=== PATIENT | male | born 1930 | race Caucasian/White ===

== ENCOUNTER 2018-08-07 22:32 | Emergency (ER) | END 2018-08-07 23:55 | disposition home or self-care (01) ==

== ENCOUNTER 2019-01-15 12:42 | Inpatient (IN) | payer MEDICARE, OTHER ==
[~2019-01-15] VITALS: Ht 170.2 cm; Wt 54.5 kg
[~2019-01-15 12:42] MED LIST: AMLO-145 PO; ESCI10TA48 PO; PENT400T9 PO; ROSU40TA35 PO
--- NOTE | 2019-01-15 13:03 | EN ---
Date/Time of Note Date/Time of Note DATE: 01/15/19 TIME: 13:02 ER Progress Note MSE in ED 3. 88-year-old male with weight loss and weakness. No SIRS criteria. Refer to ED 1. WM MELARA MD January 15, 2019 13:03
[2019-01-15] MEDS ORDERED: LISI-313 PO (14:21)
[2019-01-15] MEDS ORDERED: ISOS120T15 PO (14:22)
[2019-01-15] MEDS ORDERED: PENT400T9 PO (14:23)
[2019-01-15] MEDS ORDERED: TAMS-14 PO (14:23)
[2019-01-15] MEDS ORDERED: FINA5TAB4 PO (14:24)
[2019-01-15] MEDS ORDERED: FLUV100C2 PO (14:24)
[2019-01-15] MEDS ORDERED: ASPI-817 PO (14:25)
[2019-01-15] MEDS ORDERED: RANI150T5 PO (14:25)
[2019-01-15] MEDS ORDERED: DONE5TAB7 PO (14:25)
[2019-01-15] MEDS ORDERED: CLON1TAB13 PO (14:26)
--- NOTE | 2019-01-15 16:32 | ERD ---
ER Documentation Chief Complaint Chief Complaint SENT BY DR HOWARD D/T UNEXPLAINED WEAKNESS & FAILURE TO THRIVE HPI 88-year-old male with a history of advanced dementia sent by PCP Dr. Marybeth Howard for generalized weakness with inability to walk today as well as decreased appetite for the past 2 weeks. Family states he is not eating well. He urinates frequently. No fevers, chills, recent illnesses, nausea, vomiting, or complaints of any pain. Otherwise history is limited as the patient is not answering questions asked to him due to his dementia most likely. ROS All systems reviewed and are negative except as per history of present illness. Medications Home Meds Reported Medications Clonazepam* (Clonazepam*) 1 Mg Tablet, 0.5 MG PO QHS PRN for ANXIETY, TAB 01/15/19 Ranitidine Hcl* (Ranitidine Hcl*) 150 Mg Tablet, 150 MG PO HS, #30 TAB 01/15/19 Aspirin* (Aspirin* EC) 81 Mg Tablet.dr, 81 MG PO DAILY, TAB 01/15/19 Donepezil* (Donepezil*) 5 Mg Tablet, 5 MG PO DAILY, #30 TAB 01/15/19 Finasteride* (Finasteride*) 5 Mg Tablet, 5 MG PO DAILY, TAB 01/15/19 Fluvoxamine Maleate (FLUVOXAMINE MALEATE) 100 Mg Cap.er.24h, 100 MG PO DAILY, #30 CAP 01/15/19 Tamsulosin Hcl* (Flomax*) 0.4 Mg Cap.er.24h, 0.4 MG PO DAILY, CAP 01/15/19 Pentoxifylline* (Pentoxifylline*) 400 Mg Tablet.sa, 400 MG PO TID, TAB 01/15/19 Isosorbide Mononitrate* (Isosorbide Mononitrate*) 120 Mg Tab.sr.24h, 120 MG PO BID, TAB.SA 01/15/19 Lisinopril* (Lisinopril*) 5 Mg Tablet, 5 MG PO DAILY, #30 TAB 01/15/19 Discontinued Reported Medications Pentoxifylline* (Pentoxifylline*) 400 Mg Tablet.sa, 400 MG PO TID, TAB 01/28/15 Escitalopram Oxalate* (Escitalopram Oxalate*) 10 Mg Tablet, 10 MG PO DAILY, TAB 01/28/15 Amlodipine Besylate* (Amlodipine Besylate*) 5 Mg Tablet, 5 MG PO DAILY 07/16/13 Rosuvastatin Calcium* (Crestor*) 40 Mg Tablet, 40 MG PO DAILY 07/16/13 Allergies Allergies: Coded Allergies: Penicillins (Unverified Allergy, Unknown, 01/15/19) PMhx/Soc History of Surgery: Yes (INGUINAL HERNIA, CATARACT, stent, valve replacement ) Anesthesia Reaction: No Hx Neurological Disorder: Yes (dementia ) Hx Respiratory Disorders: Yes (emphysema) Hx Cardiac Disorders: Yes (HTN,PAD,AORTIC STENOSIS, CAD) Hx Psychiatric Problems: Yes (depression ) Hx Miscellaneous Medical Probl: No Hx Alcohol Use: No Hx Substance Use: No Hx Tobacco Use: No Smoking Status: Never smoker FmHx Unable to obtain Physical Exam Vitals Vital Signs Date Temp Pulse Resp B/P (MAP) Pulse Ox O2 O2 Flow FiO2 Time Delivery Rate 01/15/19 81 16 118/96 96 Room Air 17:06 (103) 01/15/19 98.6 135 16 86/51 (63) 94 12:57 Physical Exam Const: No acute distress, cachectic Head: Atraumatic Eyes: Normal Conjunctiva ENT: dry mucous membranes.Normal External Ears, Nose and Mouth. Neck: Full range of motion. No meningismus. Resp: Clear to auscultation bilaterally Cardio: Tachycardic with regular rhythm, no murmurs Abd: Soft, non tender, non distended. Normal bowel sounds Skin: No petechiae or rashes Back: No midline or flank tenderness Ext: No cyanosis, or edema Neur: Awake and alert, no facial asymmetry, moving all extremities. Strength and sensations grossly intact in all 4 extremities. Following commands. Psych: Flat affect Result Diagram: 01/15/19 1505 01/15/19 1505 Results 24 hrs Laboratory Tests Test 01/15/19 13:33 01/15/19 15:05 01/15/19 15:16 Urine Color YELLOW Urine Clarity SLIGHTLY CLOUDY Urine pH 5.0 Urine Specific Archer 1.021 Urine Ketones NEGATIVE mg/dL Urine Nitrite NEGATIVE mg/dL Urine Bilirubin NEGATIVE mg/dL Urine Urobilinogen NEGATIVE mg/dL Urine Leukocyte Esterase NEGATIVE Aminah/ul Urine Microscopic RBC 0 /HPF Urine Microscopic WBC 2 /HPF Urine Mucus MODERATE /HPF Urine Hemoglobin NEGATIVE mg/dL Urine Glucose NEGATIVE mg/dL Urine Total Protein 2+ mg/dl White Blood Count 7.6 10^3/ul Red Blood Count 4.14 10^6/ul Hemoglobin 13.0 g/dl Hematocrit 40.2 % Mean Corpuscular Volume 97.1 fl Mean Corpuscular Hemoglobin 31.4 pg Mean Corpuscular 32.3 g/dl Hemoglobin Concent Red Cell Distribution Width 12.9 % Platelet Count 138 10^3/UL Mean Platelet Volume 11.1 fl Immature Granulocytes % 0.300 % Neutrophils % 69.1 % Lymphocytes % 17.5 % Monocytes % 11.4 % Eosinophils % 1.3 % Basophils % 0.4 % Nucleated Red Blood Cells % 0.0 /100WBC Immature Granulocytes # 0.020 10^3/ul Neutrophils # 5.2 10^3/ul Lymphocytes # 1.3 10^3/ul Monocytes # 0.9 10^3/ul Eosinophils # 0.1 10^3/ul Basophils # 0.0 10^3/ul Nucleated Red Blood Cells # 0.0 10^3/ul Sodium Level 142 mmol/L Potassium Level 4.0 mmol/L Chloride Level 100 mmol/L Carbon Dioxide Level 38 mmol/L Anion Gap 4 Blood Urea Nitrogen 23 mg/dl Creatinine 1.13 mg/dl Est Glomerular Filtrat mL/min Rate mL/min Glucose Level 112 mg/dl Calcium Level 9.2 mg/dl Total Bilirubin 0.6 mg/dl Direct Bilirubin 0.00 mg/dl Indirect Bilirubin 0.6 mg/dl Aspartate Amino 22 IU/L Transf (AST/SGOT) Alanine 22 IU/L Aminotransferase (ALT/SGPT) Alkaline Phosphatase 70 IU/L Troponin I 0.039 ng/ml Total Protein 7.2 g/dl Albumin 3.7 g/dl Globulin 3.50 g/dl Albumin/Globulin Ratio 1.05 Bedside Glucose 91 mg/dL Current Medications Medications Dose Sig/Hilary Start Time Status Last (Trade) Ordered Route PRN Stop Time Admin Dose Reason Admin Potassium 1,000 ml @ [id number] 01/15/19 Chloride/Dext 80 mls/hr ONCE IV 17:16 amy/ Sod Cl 01/16/19 05:45 Ondansetron 4 mg BRIDGE ORDER 01/15/19 HCl (Zofran PRN IV 18:00 Inj) NAUSEA/VOMITI 01/16/19 17:59 NG 650 mg ER BRIDGE 01/15/19 Acetaminophen PRN PO 18:00 (Tylenol .MILD PAIN 01/16/19 17:59 Tab) 1-3 OR TEMP Procedures/MDM EMERGENT LABS AND DIAGNOSTIC STUDIES: Lab Results above were reviewed and interpreted by me. CBC: no anemia or evidence of infection. Mild thrombocytopenia, unclear etiolog y CMP: Elevated BUN, likely secondary to dehydration. No evidence of clinically significant electrolyte abnormality, acidosis, renal failure, hypoglycemia, liver disease, or biliary obstruction UA: no evidence of infection 12-lead EKG was interpreted by Ron Pozo MD: Normal Sinus Rhythm with ventricular rate of 80 beats per minute LVH with QRS widening and repolarization abnormality No acute ST or T wave changes suggestive of acute ischemia or STEMI. Radiology Results as interpreted by Radiology below were reviewed by Jamey Pozo MD: CT head: IMPRESSION: 1. No acute intracranial hemorrhage, transcortical infarction or mass effect. Please note MRI is more sensitive for detection of acute ischemia and can be obtained as clinically warranted. 2. Moderate intracranial atherosclerosis and chronic small vessel ischemic changes. 3. Moderate generalized cerebral and mild cerebellar volume loss. CXR: No acute abnormalities Initial Nursing notes reviewed. Previous Medical Records requested via the Electronic Health Record. EMERGENCY DEPARTMENT COURSE / MEDICAL DECISION MAKING: Patient presented tachycardic and hypotensive, likely secondary to dehydration given the history family gave me. He was treated with IV fluids with significa nt improvement and stabilization of his vitals. On exam there are no signs of infection. I do not suspect acute stroke. I suspect the patient is having worsening of his dementia and these are likely symptoms of that. Work-up does not show evidence of infection. CT head showed no acute abnormalities. However given the patient's failure to eat and hydrate himself and family's difficulty taking care of him I feel the patient requires admission for hydration and assessment of nutrition. Critical Care Time: 35 minutes Treatments/Evaluations: Close monitoring and treatment of unstable vital signs, cardiorespiratory, and neurologic status, while maintaining tight balance of fluid, respiratory, and cardiac interventions. This time includes discussing the case with the patient and the patients family. This time does not include all procedures stated elsewhere in this record. This time also includes reviewing old records, labs and radiological studies. This time includes examining and re- examining the patient. Additionally, this time also includes arranging care with admitting and consulting physicians. Accepting Care Team: Current data and ongoing care discussed. Time: Time of admission Primary Provider: Dr. May. Dr. Howard requested admission to Dr. Nguyen's service Departure Diagnosis: Primary Impression: Generalized weakness Additional Impressions: Failure to thrive Failure to thrive age range: in adult Qualified Codes: R62.7 - Adult failure to thrive Transient hypotension Condition: Fair JOSELO POZO MD January 15, 2019 16:28
[2019-01-15] MEDS ORDERED: D5W-0.45 NACL + KCL 40 MEQ 1,000 ML IV ONE (17:16)
[2019-01-15] MEDS ORDERED: ACETAMINOPHEN 325 MG TAB PO PRN ×2 (18:00→22:00)
[2019-01-15] MEDS ORDERED: ONDANSETRON 4 MG INJ IV PRN ×2 (18:00→22:00)
[2019-01-15 20:36] VITALS: BP 143/63; PULSE 71; RESP 18
[2019-01-15 20:57] VITALS: Ht 170.2 cm; Wt 54.5 kg
[2019-01-15] MEDS ORDERED: clonAZEPAM 0.5 MG TAB PO PRN (22:00)
[2019-01-15] MEDS: DEXTROSE 5%-0.45% NACL 1,000 ML IV SCH (22:13)
[2019-01-15] MEDS: FAMOTIDINE 20 MG INJ IV SCH (22:13)
[2019-01-16 01:54] VITALS: BP 161/76; PULSE 75; RESP 18
[2019-01-16 03:08] VITALS: BP 154/63
[2019-01-16 07:21] VITALS: BP 161/74; PULSE 98; RESP 16
[2019-01-16] MEDS ORDERED: FLUVOXAMINE 50 MG TAB PO SCH (09:00)
[2019-01-16] MEDS: LISINOPRIL 5 MG TAB PO SCH (10:15)
[2019-01-16] MEDS: ASPIRIN (EC) 81 MG TAB PO SCH (10:15)
[2019-01-16] MEDS: DONEPEZIL 5 MG TAB PO SCH (10:15)
[2019-01-16] MEDS: ISOSORBIDE MONONITRATE(SR)60 MG TAB PO SCH (10:16)
[2019-01-16] MEDS: PENTOXIFYLLINE (SR) 400 MG TAB PO SCH ×3 (10:16→20:16)
[2019-01-16] MEDS: FAMOTIDINE 20 MG INJ IV SCH (10:17)
[2019-01-16] MEDS: FLUVOXAMINE MALEATE 25 MG TABLET PO SCH (10:18)
[2019-01-16] MEDS: FINASTERIDE 5 MG TAB PO SCH (10:25)
--- NOTE | 2019-01-16 13:52 | QN ---
Documentation Comment pt seen and examined AGATHA PICKETT MD January 16, 2019 13:52
[2019-01-16] MEDS ORDERED: MEGESTROL (40 MG/ML) 10ML CUP PO SCH (14:30)
[2019-01-16 14:34] VITALS: BP 134/64; PULSE 78; RESP 15
--- NOTE | 2019-01-16 14:54 | PSY ---
Date/Time of Note Date/Time of Note DATE: 01/16/19 TIME: 14:41 Psychiatric Subjective Eval Consent Pt consented to telemedicine: No Subjective Evaluation Patient location: inpatient Chief Complaint: SENT BY DR AGUSTIN D/T UNEXPLAINED WEAKNESS & FAILURE TO THRIVE History of present illness Patient is 88year old male disorganized, confused. He is German speaking, translation done by staff. Daughter reports patient has been increasingly depressed, feeling hopeless, helpless, and not eating . Discussed risk and benefit of Remeron anti depressant, and patient's family consented. Hospitalization: other Medical history Problems Medical Problems: (1) Abrasion Status: Acute (2) Closed head injury Status: Acute (3) Failure to thrive Status: Acute (4) Generalized weakness Status: Acute (5) Transient hypotension Status: Acute Allergies: Coded Allergies: Penicillins (Unverified Allergy, Unknown, 01/15/19) Substance Abuse Substance use: other Substance abuse history: No Prior substance abuse treatmen: No Social History Marital status: other DPA/Conservatorship: No Psychiatric Objective Eval Review of Systems: Review of Systems: Not Applicable Physical Examination: Appetite: Decreased Energy: Decreased Interest: Decreased Mental Status Examination: Appearance: Groomed Eye Contact: Poor Behavior: Cooperative AFFECT: Flat Mood: Depressed Though Process: Linear Suicidal: No Homicidal: No Orientation: x2 Cognition: Alert Insight: Severe Attention Span: Distractible Laboratory Results Laboratory Tests Test 01/15/19 13:33 01/15/19 15:05 01/15/19 15:16 Urine Color YELLOW Urine Clarity SLIGHTLY CLOUDY Urine pH 5.0 Urine Specific [place] 1.021 Urine Ketones NEGATIVE mg/dL Urine Nitrite NEGATIVE mg/dL Urine Bilirubin NEGATIVE mg/dL Urine Urobilinogen NEGATIVE mg/dL Urine Leukocyte Esterase NEGATIVE Aminah/ul Urine Microscopic RBC 0 /HPF Urine Microscopic WBC 2 /HPF Urine Mucus MODERATE /HPF Urine Hemoglobin NEGATIVE mg/dL Urine Glucose NEGATIVE mg/dL Urine Total Protein 2+ mg/dl White Blood Count 7.6 10^3/ul Red Blood Count 4.14 10^6/ul Hemoglobin 13.0 g/dl Hematocrit 40.2 % Mean Corpuscular Volume 97.1 fl Mean Corpuscular Hemoglobin 31.4 pg Mean Corpuscular 32.3 g/dl Hemoglobin Concent Red Cell Distribution Width 12.9 % Platelet Count 138 10^3/UL Mean Platelet Volume 11.1 fl Immature Granulocytes % 0.300 % Neutrophils % 69.1 % Lymphocytes % 17.5 % Monocytes % 11.4 % Eosinophils % 1.3 % Basophils % 0.4 % Nucleated Red Blood Cells % 0.0 /100WBC Immature Granulocytes # 0.020 10^3/ul Neutrophils # 5.2 10^3/ul Lymphocytes # 1.3 10^3/ul Monocytes # 0.9 10^3/ul Eosinophils # 0.1 10^3/ul Basophils # 0.0 10^3/ul Nucleated Red Blood Cells # 0.0 10^3/ul Sodium Level 142 mmol/L Potassium Level 4.0 mmol/L Chloride Level 100 mmol/L Carbon Dioxide Level 38 mmol/L Anion Gap 4 Blood Urea Nitrogen 23 mg/dl Creatinine 1.13 mg/dl Est Glomerular Filtrat mL/min Rate mL/min Glucose Level 112 mg/dl Calcium Level 9.2 mg/dl Total Bilirubin 0.6 mg/dl Direct Bilirubin 0.00 mg/dl Indirect Bilirubin 0.6 mg/dl Aspartate Amino 22 IU/L Transf (AST/SGOT) Alanine 22 IU/L Aminotransferase (ALT/SGPT) Alkaline Phosphatase 70 IU/L Troponin I 0.039 ng/ml Total Protein 7.2 g/dl Albumin 3.7 g/dl Globulin 3.50 g/dl Albumin/Globulin Ratio 1.05 Bedside Glucose 91 mg/dL Assessment and Plan Assessment/Diagnosis Diagnosis Major Depressive Disorder, Severe Recurrent , NCD Recommendation/Plan Medication Management Remeron 7.5mg QHS Multiple antipsychotics: No Discharge Disposition: Other Legal Status: Voluntary HIGINIO BHATIA NP January 16, 2019 14:52
[2019-01-16] MEDS: MULTIVITAMINS THERAPEUTIC TAB PO SCH (15:46)
[2019-01-16] MEDS: DEXTROSE 5%-0.45% NACL 1,000 ML IV SCH (17:53)
--- NOTE | 2019-01-16 18:25 | HP ---
DATE OF ADMISSION: 01/16/2019 REASON FOR ADMISSION: Failure to thrive. HISTORY OF PRESENT ILLNESS: An 88-year-old male with a past medical history of advanced dementia, hy pertension, hyperlipidemia, history of coronary artery disease, status post STEMI and status post jenna ve replacement and history of BPH who presented to the emergency department after being sent by the [facility] physician, Dr. Howard, for generalized weakness, inability to walk and decreased appetite fo r the past 2 to 3 weeks. According to the family, the patient's history is obtained from the tyrone lazo present at the bedside. The patient was having very poor appetite. He is not eating well. She sp denny to the patient and according to him, he does not feel like he wants to eat. He has been urinatin g frequently. He is almost going every hour at night. He denied any fevers, chills or any burning s ensation. He denied any abdominal pain, nausea or vomiting. According to the daughter, the conditio n has been declining recently. On admission, temperature 98.6, pulse 135, respirations 16, blood pre ssure 85/61, saturating 94%. Labs showed a white count of 13.6, hemoglobin 13.0, bicarbonate 38, BUN of 23, creatinine 1.13. UA showed 2+ protein. White count of 7.6, hemoglobin 13.0, platelet count of 138. The patient was given potassium, Zofran and Tylenol. EKG showed a normal sinus rhythm, no a cute ST-T wave changes. CT of the head showed moderate generalized cerebral volume loss and the chidi ent was admitted for failure to thrive. PAST MEDICAL HISTORY: 1. Hypertension. 2. Hyperlipidemia. 3. Dementia. 4. Benign prostatic hypertrophy. 5. Hypercholesterolemia. 6. Anxiety. 7. Coronary artery disease. ALLERGIES: PENICILLIN. MEDICATIONS AT HOME: 1. Donepezil 5. 2. Flomax 0.4. 3. ____ 400 mg p.o. t.i.d. 4. Imdur 120 b.i.d. 5. Lisinopril 5. 6. Aspirin 81. 7. Clonazepam p.r.n. 8. ____ 100 mg. 9. Ranitidine. 10. Finasteride. SOCIAL HISTORY: No history of smoking, alcohol or any drug use. Currently lives at home with the terri holloway. REVIEW OF SYSTEMS: The patient complains of generalized weakness, poor appetite, does not feel like eating anything and has been urinating at night. He denies any chest pain, any shortness of breath, any orthopnea, PND or any lower extremity edema. DIAGNOSTIC DATA: Potassium of 4.0, bicarbonate of 38. LFTs within normal limit. Albumin 3.7. Whit e count 7.6, hemoglobin 13.0, platelet count 138. UA slightly clouded. CT of the head is essentiall y negative and chest x-ray does not show any acute ST or T wave changes. ASSESSMENT AND PLAN: This is an 88-year-old male who presented with: 1. Transient hypotension which is resolved, likely secondary to dehydration. 2. Tachycardia, hypotension likely secondary to the SIRS versus dehydration. 3. Failure to thrive, poor appetite. 4. History of benign prostatic hypertrophy, however, not controlled. 5. History of hypertension, currently hypotensive. 6. Hyperlipidemia. 7. Dementia. 8. Depression. PLAN: At this period of time, the patient is admitted to med/surg. The patient will be on IV fluids . Home medications will be resumed. We will call speech and swallow. The patient will have an appe tite stimulant and also will have a calorie count. We will also call a dietitian. We will also star t the patient on appetite stimulant. We discussed the options with the daughter on putting the patie nt for a feeding tube; however, they are currently declining. We will also do a PT eval. The rest o f the treatment will depend on the patient's hospitalization course. Dictated By: AGATHA PEREZ/ANGELIA Conf#: [id number] DID#: [id number]
[2019-01-16] MEDS ORDERED: HALOPERIDOL 5 MG INJ IV ONE (19:33)
[2019-01-16] MEDS ORDERED: HALOPERIDOL 5 MG INJ IM ONE (20:00)
[2019-01-16 20:02] VITALS: BP 137/61; PULSE 75; RESP 17
[2019-01-16] MEDS: TAMSULOSIN (SR) 0.4 MG CAP PO SCH (20:16)
[2019-01-16] MEDS: MIRTAZAPINE 15 MG TAB PO SCH (20:16)
[2019-01-16] MEDS: MEGESTROL 40 MG TAB PO SCH (20:16)
[2019-01-17 02:00] VITALS: BP 142/71; PULSE 78; RESP 18
[2019-01-17 07:26] VITALS: BP 179/61; PULSE 68; RESP 16
[2019-01-17] MEDS: FAMOTIDINE 20 MG INJ IV SCH (08:31)
[2019-01-17] MEDS: MULTIVITAMINS THERAPEUTIC TAB PO SCH (08:35)
[2019-01-17] MEDS: FLUVOXAMINE MALEATE 25 MG TABLET PO SCH (08:35)
[2019-01-17] MEDS: MEGESTROL 40 MG TAB PO SCH ×4 (08:38→20:24)
[2019-01-17] MEDS: FINASTERIDE 5 MG TAB PO SCH (08:39)
[2019-01-17] MEDS: PENTOXIFYLLINE (SR) 400 MG TAB PO SCH ×3 (08:39→20:24)
[2019-01-17] MEDS: ISOSORBIDE MONONITRATE(SR)60 MG TAB PO SCH (08:39)
[2019-01-17] MEDS: LISINOPRIL 5 MG TAB PO SCH (08:40)
[2019-01-17] MEDS: ASPIRIN (EC) 81 MG TAB PO SCH (08:40)
[2019-01-17] MEDS: DONEPEZIL 5 MG TAB PO SCH (08:40)
[2019-01-17] MEDS: DEXTROSE 5%-0.45% NACL 1,000 ML IV SCH (12:58)
--- NOTE | 2019-01-17 13:45 | PN ---
Date/Time of Note Date/Time of Note DATE: 01/17/19 TIME: 13:42 Assessment/Plan VTE Prophylaxis Risk score (from Ns)>0 risk: 3 SCD applied (from [facility]): Yes Pharmacological prophylaxis: NA/contraindicated Pharm contraindication: anticoag not tolerated Lines/Catheters IV Catheter Type (from Nrs): Peripheral IV Assessment/Plan Hospital Course 1. Transient hypotension which is resolved, likely secondary to dehydration. 2. Tachycardia, hypotension likely secondary to the SIRS versus dehydration. 3. Failure to thrive, poor appetite. 4. History of benign prostatic hypertrophy, however, not controlled. 5. History of hypertension, currently hypotensive. 6. Hyperlipidemia. 7. Dementia. 8. Depression. Assessment/Plan -med/surg. -per family DNR - IV fluids. -c/w Home medications will be resumed. - speech and swallow eval. -c/w appetite stimulant and also will have a calorie count. - dietitian consult. - PT eval. DVT proph. -Gi proph. Famotidine. Result Diagram: 01/15/19 1505 01/15/19 1505 Subjective 24 Hr Interval Summary Constitutional: no complaints Exam/Review of Systems Exam Vitals Vital Signs Date Temp Pulse Resp B/P (MAP) Pulse Ox O2 O2 Flow FiO2 Time Delivery Rate 01/17/19 97.7 68 16 179/61 96 Room Air 07:26 (100) 01/16/19 3.0 08:45 Intake and Output 01/16/19 01/16/19 01/17/19 1515:00 23:00 07:00 IntakeIntake Total 875 ml 600 ml BalanceBalance 875 ml 600 ml Constitutional: alert, oriented, frail Neck: supple Respiratory: diminished breath sounds Cardiovascular: regular rate and rhythm Medications Medication Current Medications Acetaminophen (Tylenol Tab) 650 mg Q6H PRN PO MILD PAIN(1-3)OR ELEVATED TEMP; Start 01/15/19 at 22:00 Ondansetron HCl (Zofran Inj) 4 mg Q6H PRN IV NAUSEA AND/OR VOMITING; Start 01/15/19 at 22:00 Famotidine (Pepcid Iv) 20 mg DAILY IV Last administered on 01/17/19at 08:31; Admin Dose 20 MG; Start 01/15/19 at 22:00 Aspirin (Halfprin) 81 mg DAILY PO Last administered on 01/17/19 08:40; Admin Dose 81 MG; Start 01/16/19 at 09:00 Clonazepam (Klonopin) 0.5 mg QHS PRN PO ANXIETY; Start 01/15/19 at 22:00 Donepezil HCl (Aricept) 5 mg DAILY PO Last administered on 01/17/19 08:40; Admin Dose 5 MG; Start 01/16/19 at 09:00 Finasteride (Proscar) 5 mg DAILY PO Last administered on 01/17/19 08:39; Admin Dose 5 MG; Start 01/16/19 at 09:00 Isosorbide Mononitrate (Imdur) 120 mg DAILY PO Last administered on 01/17/19 08:39; Admin Dose 120 MG; Start 01/16/19 at 09:00 Lisinopril (Zestril) 5 mg DAILY PO Last administered on 01/17/19 08:40; Admin Dose 5 MG; Start 01/16/19 at 09:00 Pentoxifylline (Trental) 400 mg TID PO Last administered on 01/17/19 12:57; Admin Dose 400 MG; Start 01/16/19 at 09:00 Tamsulosin HCl (Flomax) 0.4 mg HS PO Last administered on 01/16/19 20:16; Admin Dose 0.4 MG; Start 01/16/19 at 21:00 Dextrose/Sodium Chloride 1,000 ml @ 50 mls/hr Q20H IV Last administered on 01/17/19 12:58; Admin Dose 50 MLS/HR; Start 01/15/19 at 22:00 Fluvoxamine Maleate (Fluvoxamine Maleate) 100 mg DAILY PO Last administered on 01/17/19 08:35; Admin Dose 100 MG; Start 01/16/19 at 09:00 Multivitamins Therapeutic (Theragran) 1 tab DAILY PO Last administered on 01/17/19 08:35; Admin Dose 1 TAB; Start 01/16/19 at 14:00 Mirtazapine (Remeron) 7.5 mg HS PO Last administered on 01/16/19 20:16; Admin Dose 7.5 MG; Start 01/16/19 at 21:00 Megestrol Acetate (Megace) 40 mg QID PO Last administered on 01/17/19at 12:57; Admin Dose 40 MG; Start 01/16/19 at 21:00 SMILEY ZACARIAS January 17, 2019 13:45
[2019-01-17 14:09] VITALS: BP 102/51; PULSE 62; RESP 15
[2019-01-17] MEDS: MEMANTINE 10 MG TAB PO SCH (15:21)
[2019-01-17 20:13] VITALS: BP 123/57; PULSE 77; RESP 18
[2019-01-17] MEDS: MIRTAZAPINE 15 MG TAB PO SCH (20:23)
[2019-01-17] MEDS: AMLODIPINE 5 MG TAB PO SCH (20:24)
[2019-01-17] MEDS: TAMSULOSIN (SR) 0.4 MG CAP PO SCH (20:24)
[2019-01-18 01:56] VITALS: BP 150/73; PULSE 84; RESP 18
[2019-01-18] MEDS ORDERED: PANTOPRAZOLE 40 MG INJ IV SCH (06:00)
[2019-01-18 08:00] VITALS: BP 169/66; PULSE 80; RESP 18
[2019-01-18] MEDS: DEXTROSE 5%-0.45% NACL 1,000 ML IV SCH (08:41)
[2019-01-18] MEDS: FAMOTIDINE 20 MG INJ IV SCH (08:42)
[2019-01-18] MEDS: FLUVOXAMINE MALEATE 25 MG TABLET PO SCH (08:43)
[2019-01-18] MEDS: MEMANTINE 10 MG TAB PO SCH (08:44)
[2019-01-18] MEDS: ISOSORBIDE MONONITRATE(SR)60 MG TAB PO SCH (08:44)
[2019-01-18] MEDS: MEGESTROL 40 MG TAB PO SCH (08:48)
[2019-01-18] MEDS: FINASTERIDE 5 MG TAB PO SCH (08:51)
[2019-01-18] MEDS: PENTOXIFYLLINE (SR) 400 MG TAB PO SCH (08:51)
[2019-01-18] MEDS: AMLODIPINE 5 MG TAB PO SCH (08:51)
[2019-01-18] MEDS: DONEPEZIL 5 MG TAB PO SCH (08:52)
[2019-01-18] MEDS: MULTIVITAMINS THERAPEUTIC TAB PO SCH (08:52)
[2019-01-18] MEDS: LISINOPRIL 5 MG TAB PO SCH (08:52)
[2019-01-18] MEDS: ASPIRIN (EC) 81 MG TAB PO SCH (08:52)
--- NOTE | 2019-01-18 11:15 | PDOCDIS ---
Discharge Instructions DIAGNOSIS Discharge Diagnosis failure to thrive CONDITION [id number] Patient Condition: [id number] Stable HOME CARE INSTRUCTIONS: [id number] Special Diet: [id number] tasty, with Bust TID ACTIVITY: [id number] Activity Restrictions: [id number] Slowly Increase Activity Rest between Activity FOLLOW UP/APPOINTMENTS Follow-up Plan PCP 1 week SMILEY ZACARIAS January 18, 2019 11:15
[2019-01-18] MEDS ORDERED: MIRT15TA5 PO (11:18)
[2019-01-18] MEDS ORDERED: MEMA10TA20 PO (11:18)
[2019-01-18] MEDS ORDERED: MULTI PO (11:18)
[2019-01-18] MEDS ORDERED: MEGE40TA PO (11:18)
--- NOTE | 2019-01-18 11:19 | DS ---
Date/Time of Note Date/Time of Note DATE: 01/18/19 TIME: 11:19 Discharge Summary Admission/Discharge Info Admit Date/Time January 16, 2019 at 00:54 Discharge Date/Time Discharge Diagnosis failure to thrive Patient Condition: Stable Consults psyc. GEORGES, Pamela Hospital Course An 88-year-old male with a past medical history of advanced dementia, hypertension, hyperlipidemia, history of coronary artery disease, status post STEMI and status post valve replacement and history of BPH who presented to the emergency department after being sent by the primary care physician, Dr. Howard, for generalized weakness, inability to walk and decreased appetite for the past 2 to 3 weeks. According to the family, the patient's history is obtained from the daughter present at the bedside. The patient was having very poor appetite. He is not eating well. She spoke to the patient and according to him, he does not feel like he wants to eat. He has been urinating frequently. He is almost going every hour at night. He denied any fevers, chills or any burning sensation. He denied any abdominal pain, nausea or vomiting. According to the daughter, the condition has been declining recently. On admission, temperature 98.6, pulse 135, respirations 16, blood pressure 85/61, saturating 94%. Labs showed a white count of 13.6, hemoglobin 13.0, bicarbonate 38, BUN of 23, creatinine 1.13. UA showed 2+ protein. White count of 7.6, hemoglobin 13.0, platelet count of 138. The patient was given potassium, Zofran and Tylenol. EKG showed a normal sinus rhythm, no acute ST-T wave changes. CT of the head showed moderate generalized cerebral volume loss and the patient was admitted for failure to thrive. PAST MEDICAL HISTORY: 1. Hypertension. 2. Hyperlipidemia. 3. Dementia. 4. Benign prostatic hypertrophy. 5. Hypercholesterolemia. 6. Anxiety. 7. Coronary artery disease. Dx: 1. Transient hypotension which is resolved, likely secondary to dehydration. 2. Tachycardia, hypotension likely secondary to the SIRS versus dehydration. 3. Failure to thrive, poor appetite. 4. History of benign prostatic hypertrophy, however, not controlled. 5. History of hypertension, currently hypotensive. 6. Hyperlipidemia. 7. Dementia. 8. Depression. during hospitalization pt was in med/surg unit. We speak to pt daughter and she decides to have her father DNR. Pt was given IV fluids. for hydration. We c/w Home medications. Pt. underwent speech and swallow eval. He passed and was started on appetite stimulant and had a calorie count. Dietitian was consulted. Pt had PT eval. that revealed unsteady and weak gait. Pt was seen by psych. 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 Pt also was started on Namenda due to dementia. family was satisfied with the treatment, all questions were answered and pt was d/c home. Home Meds Active Scripts Memantine HCl (Memantine HCl) 10 Mg Tablet, 10 MG PO DAILY for 30 Days, TAB Prov:ZENTSEVASMILEY 01/18/19 Multivitamins* (Theragran*) 1 Tab Tab, 1 TAB PO DAILY for 30 Days, TAB Prov:MEZENTSEVASMILEY 01/18/19 Megestrol Acetate* (Megace*) 40 Mg Tab, 40 MG PO QID for 28 Days, TAB Prov:RELLSMILEY 01/18/19 Mirtazapine* (Mirtazapine*) 15 Mg Tablet, 7.5 MG PO HS, #30 TAB Prov:MEZENTSEVA,SMILEY 01/18/19 Reported Medications Clonazepam* (Clonazepam*) 1 Mg Tablet, 0.5 MG PO QHS PRN for ANXIETY, TAB 01/15/19 Ranitidine Hcl* (Ranitidine Hcl*) 150 Mg Tablet, 150 MG PO HS, #30 TAB 01/15/19 Aspirin* (Aspirin* EC) 81 Mg Tablet.dr, 81 MG PO DAILY, TAB 01/15/19 Donepezil* (Donepezil*) 5 Mg Tablet, 5 MG PO DAILY, #30 TAB 01/15/19 Finasteride* (Finasteride*) 5 Mg Tablet, 5 MG PO DAILY, TAB 01/15/19 Fluvoxamine Maleate (FLUVOXAMINE MALEATE) 100 Mg Cap.er.24h, 100 MG PO DAILY, #30 CAP 01/15/19 Tamsulosin Hcl* (Flomax*) 0.4 Mg Cap.er.24h, 0.4 MG PO DAILY, CAP 01/15/19 Pentoxifylline* (Pentoxifylline*) 400 Mg Tablet.sa, 400 MG PO TID, TAB 01/15/19 Isosorbide Mononitrate* (Isosorbide Mononitrate*) 120 Mg Tab.sr.24h, 120 MG PO BID, TAB.SA 01/15/19 Lisinopril* (Lisinopril*) 5 Mg Tablet, 5 MG PO DAILY, #30 TAB 01/15/19 Discontinued Reported Medications Pentoxifylline* (Pentoxifylline*) 400 Mg Tablet.sa, 400 MG PO TID, TAB 01/28/15 Escitalopram Oxalate* (Escitalopram Oxalate*) 10 Mg Tablet, 10 MG PO DAILY, TAB 01/28/15 Amlodipine Besylate* (Amlodipine Besylate*) 5 Mg Tablet, 5 MG PO DAILY 07/16/13 Rosuvastatin Calcium* (Crestor*) 40 Mg Tablet, 40 MG PO DAILY 07/16/13 Follow-up Plan PCP 1 week Primary Care Provider Not On Staff Doctor Time spent on discharge: < 30 minutes Pending Labs Laboratory Tests Test 01/18/19 05:45 White Blood Count 4.8 10^3/ul (4.8-10.8) Red Blood Count 4.16 10^6/ul (4.70-6.10) Hemoglobin 12.9 g/dl (14.0-18.0) Hematocrit 40.2 % (42.0-52.0) Mean Corpuscular Volume 96.6 fl (82.0-101.0) Mean Corpuscular Hemoglobin 31.0 pg (29.0-33.0) Mean Corpuscular Hemoglobin Concent 32.1 g/dl (32.0-37.0) Red Cell Distribution Width 13.0 % (11.5-14.5) Platelet Count 140 10^3/UL (140-415) Mean Platelet Volume 11.0 fl (7.4-10.4) Immature Granulocytes % 0.200 % (0.001-0.429) Neutrophils % 50.6 % (39.0-77.0) Lymphocytes % 29.5 % (15.0-51.0) Monocytes % 12.8 % (0.0-11.0) Eosinophils % 6.1 % (0.0-7.0) Basophils % 0.8 % (0.0-2.0) Nucleated Red Blood Cells % 0.0 /100WBC (0.0-0.0) Immature Granulocytes # 0.010 10^3/ul (0.0-0.031) Neutrophils # 2.4 10^3/ul (1.6-7.5) Lymphocytes # 1.4 10^3/ul (0.8-2.9) Monocytes # 0.6 10^3/ul (0.3-0.9) Eosinophils # 0.3 10^3/ul (0.0-0.5) Basophils # 0.0 10^3/ul (0.0-0.1) Nucleated Red Blood Cells # 0.0 10^3/ul (0.0-0.0) Sodium Level 143 mmol/L (135-144) Potassium Level 3.5 mmol/L (3.5-5.1) Chloride Level 105 mmol/L (97-110) Carbon Dioxide Level 35 mmol/L (21-31) Anion Gap 3 (5-13) Blood Urea Nitrogen 17 mg/dl (7-20) Creatinine 0.89 mg/dl (0.61-1.24) Est Glomerular Filtrat Rate mL/min mL/min (>60) Glucose Level 97 mg/dl (70-220) Calcium Level 8.8 mg/dl (8.4-10.2) SMILEY ZACARIAS January 18, 2019 11:19
== END 2019-01-18 12:10 | disposition home or self-care (01) | DRG 640 ==
LOC: E/R 12:42 → 5EC 17:57 → OBSVTOIN 01-16 00:54
PROVIDERS: ADMIT Internal Medicine; ATTEND Internal Medicine
DX: E86.0 Dehydration (principal); E43 Unspecified severe protein-calorie malnutrition; Z68.1 Body mass index [BMI] 19.9 or less, adult; I95.9 Hypotension, unspecified; R00.0 Tachycardia, unspecified; R62.7 Adult failure to thrive; N40.0 Benign prostatic hyperplasia without lower urinary tract symptoms; I25.10 Atherosclerotic heart disease of native coronary artery without angina pectoris; I10 Essential (primary) hypertension; E78.5 Hyperlipidemia, unspecified; F41.9 Anxiety disorder, unspecified; F32.9 Major depressive disorder, single episode, unspecified; F03.90 Unspecified dementia, unspecified severity, without behavioral disturbance, psychotic disturbance, mood disturbance, and anxiety; Z66 Do not resuscitate; I25.2 Old myocardial infarction; Z95.2 Presence of prosthetic heart valve; Z79.02 Long term (current) use of antithrombotics/antiplatelets; Z79.82 Long term (current) use of aspirin
CPT/HCPCS: 36415; 70450; 71045; 76856; 80048; 80053; 81001; 82962; 84153; 84154; 84484; 85025; 92526; 92610; 93005; 96365; 97110; 97116; 97162; 97530; 99217; G0378; J1630; J3480; J7042